=== PATIENT | male | born 1990 | race Caucasian/White ===

== ENCOUNTER 2023-10-31 13:00 | Emergency (ER) | payer OTHER ==
[~2023-10-31] VITALS: Ht 188 cm; Wt 104.5 kg
[2023-10-31 17:32] VITALS: BP 118/67; PULSE 68; RESP 20; TEMP 97.8; O2SAT 99
== END 2023-10-31 17:57 | disposition home or self-care (01) ==
LOC: ER 13:00
DX: M25.561 Pain in right knee (principal); F12.90 Cannabis use, unspecified, uncomplicated; Z90.89 Acquired absence of other organs
CPT/HCPCS: 73562